=== PATIENT | male | born 1960 | race Caucasian/White ===

== ENCOUNTER 2018-01-23 10:46 | Emergency (ER) | payer BC ==
[~2018-01-23] VITALS: Ht 167.6 cm; Wt 72.6 kg
[2018-01-23 10:57] VITALS: BP_SYST 179
[2018-01-23] MEDS ORDERED: SILVER SULFADIAZINE 1%, 25 GM TOPICAL CREAM (SSD) TP ONE ×2 (11:10→11:15)
[2018-01-23] MEDS ORDERED: DIPH-TET-PERTUS Vaccine 0.5 ML VIAL (ADACEL) I.M. ONE (11:15)
[2018-01-23] MEDS ORDERED: LORazepam 2 MG/ML VIAL (FOR ER USE) IM ONE (11:45)
[2018-01-23] MEDS ORDERED: cloNIDine HCL 0.1 MG TABLET PO ONE (12:30)
[2018-01-23 13:20] VITALS: BP_SYST 178
== END 2018-01-23 13:20 | disposition home or self-care (01) ==
LOC: SED 10:46
DX: T25.211A Burn of second degree of right ankle, initial encounter (principal); G12.9 Spinal muscular atrophy, unspecified; I10 Essential (primary) hypertension; X10.0XXA Contact with hot drinks, initial encounter; Y93.89 Activity, other specified; Y92.89 Other specified places as the place of occurrence of the external cause; Y99.8 Other external cause status
CPT/HCPCS: 16020; 90471; 90715; 96372; 99284; J2060